=== PATIENT | male | born 1985 | race African-American/Black ===

== ENCOUNTER 2020-07-08 14:23 | Inpatient (IN) | payer MEDICAID ==
[~2020-07-08] VITALS: Ht 172.7 cm; Wt 98.0 kg
[2020-07-08] MEDS ORDERED: SODIUM CHLORIDE 0.9% 1,000 ML IV ONE (15:15)
[2020-07-08 15:18] LABS: BASOPHILS % 0.4 % (0.0-2.0); EOSINOPHILS % 1.6 % (0.0-5.0); HEMATOCRIT. 51.6 % (42.0-52.0); HEMOGLOBIN. 17.1 g/dL (14.0-18.0); LYMPHOCYTES % 12.5 % (20.0-50.0); MEAN CORPUSCULAR HEMOGLOBIN 28.6 pg (28.0-32.0); MEAN CORPUSCULAR VOLUME 86.3 fL (80.0-94.0); MONOCYTES % 5.6 % (2.0-8.0); NEUTROPHILS % 79.9 % (40.0-76.0); PLATELET 123 x1000/uL (130-400); RED BLOOD CELL COUNT 5.98 mill/uL (4.7-6.1); RED CELL DISTRIBUTION WIDTH 14.5 % (11.6-14.6)
[2020-07-08 15:25] LABS: CHLORIDE 105 mEq/L (98-107)
[2020-07-08 15:28] LABS: ETHANOL BLOOD < 10 mg/dL
[2020-07-08 15:46] LABS: CARBAMAZEPINE < 0.5 ug/mL (4-12); PHENOBARBITAL < 2.1 ug/mL (15.0-40.0); VALPROIC ACID < 3.0 ug/mL (50-100)
[2020-07-08] MEDS ORDERED: LEVETIRACETAM 500MG PREMIX 100 ML IV ONE (16:15)
[2020-07-08 16:47] LABS: *BARBITURATES SCREEN URINE NEGATIVE (NEGATIVE); *BENZODIAZEPINES SCREEN URINE PRESUMTIVE POSITIVE (NEGATIVE); *COCAINE SCREEN URINE NEGATIVE (NEGATIVE); METHADONE URINE SCREEN NEGATIVE (NEGATIVE)
[2020-07-08 16:48] LABS: *AMPHETAMINES SCREEN URINE NEGATIVE (NEGATIVE); CANNABINOID URINE SCREEN PRESUMTIVE POSITIVE (NEGATIVE); OPIATES URINE SCREEN NEGATIVE (NEGATIVE); PHENCYCLIDINE URINE SCREEN NEGATIVE (NEGATIVE)
[2020-07-08 17:36] LABS: CHLORIDE 107 mEq/L (98-107)
[2020-07-08] MEDS ORDERED: ASPIRIN 325MG EC TABLET PO ONE (18:15)
[2020-07-08] MEDS ORDERED: SODIUM BICARBONATE 8.4% 1 MEQ/ML 50ML SYR IV ONE (18:15)
[2020-07-08] MEDS ORDERED: CLONIDINE 0.2MG TABLET PO ONE (18:45)
[2020-07-08] MEDS ORDERED: CLONIDINE 0.1MG TABLET PO PRN (21:00)
[2020-07-08] MEDS ORDERED: LORAZEPAM 2MG/ML CPJ IV PRN (21:00)
[2020-07-08] MEDS ORDERED: IPRATROPIUM/ALBUTEROL 0.5-3(2.5)MG/3ML NEB NEB PRN (21:00)
[2020-07-08] MEDS ORDERED: ACETAMINOPHEN 325MG TABLET PO PRN (21:00)
[2020-07-08] MEDS ORDERED: LEVETIRACETAM 500MG TABLET PO SCH (21:00)
[2020-07-08] MEDS ORDERED: DOCUSATE SODIUM 100MG CAPSULE PO PRN (21:00)
[2020-07-08] MEDS ORDERED: ONDANSETRON HCL 4MG/2ML INJ IV PRN (21:00)
[2020-07-08] MEDS ORDERED: MAGNESIUM/ALUMINUM HYDROXIDE/SIMETHICONE 30ML UDC PO PRN (21:00)
[2020-07-08 21:15] VITALS: BP 135/84
[2020-07-08] MEDS ORDERED: SODIUM POLYSTYRENE SULFONATE 15 G/60 ML BOT PO NR (21:30)
[2020-07-08] MEDS: HYDROCODONE/ACETAMINOPHEN 5/325MG TABLET PO PRN (21:50)
[2020-07-08] MEDS ORDERED: INFLUENZA VACCINE 05/PF 0.5 ML VIAL IM ONE (23:00)
[2020-07-08] MEDS ORDERED: GABA800T97 PO (23:35)
[2020-07-08] MEDS ORDERED: AMLO10TA80 PO (23:35)
[2020-07-08] MEDS ORDERED: METO-539 PO (23:35)
[2020-07-08] MEDS ORDERED: LOSA100T32 PO (23:35)
[2020-07-09] VITALS (7 sets, daily range): BP systolic 128–171; BP diastolic 72–93
[2020-07-09 00:27] LABS: CHLORIDE 106 mEq/L (98-107)
[2020-07-09 00:36] LABS: CREATINE KINASE 516 IU/L (39-308)
[2020-07-09 00:38] LABS: CREATINE KINASE MB FRACTION 6.7 ng/mL (0.5-3.6)
[2020-07-09] MEDS ORDERED: INFLUENZA VACCINE 05/PF 0.5 ML VIAL IM ONE (06:00)
[2020-07-09 06:43] LABS: CREATINE KINASE MB FRACTION 5.5 ng/mL (0.5-3.6)
[2020-07-09 06:59] LABS: BASOPHILS % 0.6 % (0.0-2.0); EOSINOPHILS % 1.3 % (0.0-5.0); HEMATOCRIT. 48.3 % (42.0-52.0); HEMOGLOBIN. 16.2 g/dL (14.0-18.0); LYMPHOCYTES % 17.8 % (20.0-50.0); MEAN CORPUSCULAR HEMOGLOBIN 28.8 pg (28.0-32.0); MEAN CORPUSCULAR VOLUME 86.2 fL (80.0-94.0); MONOCYTES % 6.7 % (2.0-8.0); NEUTROPHILS % 73.6 % (40.0-76.0); PLATELET 115 x1000/uL (130-400); RED BLOOD CELL COUNT 5.61 mill/uL (4.7-6.1); RED CELL DISTRIBUTION WIDTH 14.4 % (11.6-14.6)
[2020-07-09] MEDS: LEVETIRACETAM 500MG TABLET PO SCH ×2 (08:31→21:03)
[2020-07-09] MEDS: METOPROLOL TARTRATE 25MG TABLET PO SCH ×2 (10:11→21:00)
[2020-07-09] MEDS ORDERED: AMLODIPINE 5MG TABLET PO SCH (11:00)
[2020-07-09] MEDS: GABAPENTIN 400MG CAPSULE PO SCH ×2 (14:58→21:03)
[2020-07-09] MEDS: HYDROCODONE/ACETAMINOPHEN 5/325MG TABLET PO PRN (17:02)
[2020-07-09] MEDS: AMLODIPINE 5MG TABLET PO SCH (21:04)
[2020-07-10] VITALS: BP 135/70
[2020-07-10 04:00] VITALS: BP 135/66
[2020-07-10] MEDS: GABAPENTIN 400MG CAPSULE PO SCH ×2 (06:10→13:41)
[2020-07-10 06:53] LABS: BASOPHILS % 0.7 % (0.0-2.0); EOSINOPHILS % 2.6 % (0.0-5.0); HEMATOCRIT. 49.2 % (42.0-52.0); HEMOGLOBIN. 16.7 g/dL (14.0-18.0); LYMPHOCYTES % 20.4 % (20.0-50.0); MEAN CORPUSCULAR VOLUME 85.7 fL (80.0-94.0); MEAN PLATELET VOLUME 9.9 fl (7.4-10.4); MONOCYTES % 13.6 % (2.0-8.0); NEUTROPHILS % 62.7 % (40.0-76.0); PLATELET 103 x1000/uL (130-400); RED BLOOD CELL COUNT 5.74 mill/uL (4.7-6.1); RED CELL DISTRIBUTION WIDTH 14.1 % (11.6-14.6)
[2020-07-10 07:04] LABS: CHLORIDE 105 mEq/L (98-107)
[2020-07-10 08:00] VITALS: BP 129/70
[2020-07-10] MEDS: LEVETIRACETAM 500MG TABLET PO SCH (08:35)
[2020-07-10] MEDS: METOPROLOL TARTRATE 25MG TABLET PO SCH (08:36)
[2020-07-10] MEDS: AMLODIPINE 5MG TABLET PO SCH (08:36)
[2020-07-10 12:00] VITALS: BP 152/84
[2020-07-10] MEDS ORDERED: KEPP500 PO (12:02)
[2020-07-10] MEDS ORDERED: ATOR10TA PO (12:02)
[2020-07-10 14:34] VITALS: BP 152/84
[2020-07-10 16:00] VITALS: BP 146/89
[2020-07-10] MEDS ORDERED: ATORVASTATIN CALCIUM 10MG TABLET PO SCH (21:00)
== END 2020-07-10 17:40 | disposition home or self-care (01) | DRG 53 ==
LOC: ER 14:23 → 5WST 19:16 → ENRESERV 20:29
PROVIDERS: ADMIT Internal Medicine; ATTEND Internal Medicine
DX: G40.909 Epilepsy, unspecified, not intractable, without status epilepticus (principal); E87.5 Hyperkalemia; E78.5 Hyperlipidemia, unspecified; I11.9 Hypertensive heart disease without heart failure; G62.9 Polyneuropathy, unspecified; Z95.3 Presence of xenogenic heart valve; Z91.19 Patient's noncompliance with other medical treatment and regimen; Z91.14 Patient's other noncompliance with medication regimen; Z79.899 Other long term (current) drug therapy
CPT/HCPCS: 36415; 71045; 80048; 80053; 80061; 80156; 80165; 80184; 80185; 80305; 80320; 82550; 82553; 84443; 84484; 85025; 90686; 93005; 93306; 93970; 96365; 99291; J1953; J3490; J7030; G0480

== ENCOUNTER 2020-12-06 11:14 | Emergency (ER) | payer MEDICAID ==
[~2020-12-06] VITALS: Ht 172.7 cm; Wt 100.0 kg
[~2020-12-06 11:14] MED LIST: AMLO10TA80 PO; ATOR10TA PO; GABA800T97 PO; KEPP500 PO; LOSA100T32 PO; METO-539 PO
[2020-12-06 11:54] LABS: BASOPHILS % 0.9 % (0.0-2.0); EOSINOPHILS % 3.5 % (0.0-5.0); HEMATOCRIT. 48.5 % (42.0-52.0); HEMOGLOBIN. 16.3 g/dL (14.0-18.0); LYMPHOCYTES % 25.1 % (20.0-50.0); MEAN CORPUSCULAR HEMOGLOBIN 28.7 pg (28.0-32.0); MEAN CORPUSCULAR VOLUME 85.3 fL (80.0-94.0); MEAN PLATELET VOLUME 8.8 fl (7.4-10.4); MONOCYTES % 5.6 % (2.0-8.0); NEUTROPHILS % 64.9 % (40.0-76.0); PLATELET 122 x1000/uL (130-400); RED BLOOD CELL COUNT 5.68 mill/uL (4.7-6.1); RED CELL DISTRIBUTION WIDTH 14.9 % (11.6-14.6)
[2020-12-06 12:01] LABS: CHLORIDE 109 mEq/L (98-107)
[2020-12-06] MEDS ORDERED: IBUPROFEN 400MG TABLET PO ONE (12:45)
[2020-12-06] MEDS ORDERED: ACETAMINOPHEN 325MG TABLET PO ONE (12:45)
[2020-12-06] MEDS ORDERED: LEVETIRACETAM 500MG PREMIX 100 ML IV ONE (12:45)
[2020-12-06 13:00] VITALS: BP 154/79
== END 2020-12-06 14:58 | disposition home or self-care (01) ==
LOC: ER 11:17
DX: G40.909 Epilepsy, unspecified, not intractable, without status epilepticus (principal); G83.9 Paralytic syndrome, unspecified; R01.1 Cardiac murmur, unspecified; I10 Essential (primary) hypertension
CPT/HCPCS: 36415; 80048; 82542; 83735; 84100; 85025; 93005; 96374; 99284; J1953